=== PATIENT | male | born 1955 | race African-American/Black ===

== ENCOUNTER → 2017-07-26 | Day surgery (SDC) | payer BC ==
[~2017-07-26] MED LIST: LIDOCAINE 1% PF 2 ML VIAL. ID; LIDOCAINE 2% PF Vial for OR 5 ML VIAL.; MIDAZOLAM HCL/PF 2 MG/2 ML VIAL. IV; PROPOFOL 20 ML IV; fentaNYL PF VIAL 100 MCG/2 ML VIAL IV
[2017-07-26] MEDS: IV RINGERS,LACTATED 1000ML 1,000 ML IV (07:42)
== END | disposition home or self-care (01) ==
LOC: SURG 07:17
DX: Z12.11 Encounter for screening for malignant neoplasm of colon (principal); K64.0 First degree hemorrhoids; Z82.49 Family history of ischemic heart disease and other diseases of the circulatory system; Z83.3 Family history of diabetes mellitus; Z72.0 Tobacco use
CPT/HCPCS: 45378; J2704